=== PATIENT | male | born 1940 | race Caucasian/White ===

== ENCOUNTER 2019-07-25 19:23 | Emergency (ER) | payer MEDICARE, BC, SELFPAY ==
[2019-07-25 19:24] VITALS: BP 145/66; PULSE 73; RESP 14; O2SAT 95
--- NOTE | 2019-07-25 19:26 | ED.GENADULT ---
HPI - General Adult General Chief complaint: Neuro Symptoms/Deficit Stated complaint: CODE STROKE Time Seen by Provider: 07/25/19 19:24 Source: family and EMS Mode of arrival: EMS Limitations: altered mental status History of Present Illness HPI narrative: Patient is a 79-year-old male. End-stage renal disease on dialysis. Received a full treatment of dialysis today 07/25/19. Was at his normal state health when he was at the local [place] with his . His states that she went to the [employer] machine when she returned the patient was staring off to the side would not answer any of her questions. She stated that there was no trauma. She was concerned that he had a stroke. EMS was called. When EMS arrived they stated that the patient was maintaining his airway however was minimally responsive. Responding only to very painful stimuli. There was some concern about him moving his right side. There is also an obvious right-sided facial droop. Blood group close level prior to arrival is greater than 100. IV was started. No other interventions. Related Data Home Medications Medication Instructions Recorded Confirmed acetaminophen [Tylenol Extra 1,000 mg PO Q8HR PRN 07/25/19 07/25/19 Strength] aspirin [Aspirin Low Dose] 81 mg PO DAILY 07/25/19 07/25/19 carvedilol 12.5 mg PO BID 07/25/19 07/25/19 cholecalciferol (vitamin D3) 5,000 unit PO DAILY 07/25/19 07/25/19 [Vitamin D3] epoetin beta, methoxy peg [Mircera] 30 mcg SUBCUT Q4W 07/25/19 07/25/19 furosemide 80 mg PO DAILY 07/25/19 07/25/19 gabapentin 300 mg PO BEDTIME 07/25/19 07/25/19 hydralazine 25 mg PO BID 07/25/19 07/25/19 isosorbide mononitrate 30 mg PO DAILY 07/25/19 07/25/19 lanthanum [Fosrenol] 750 mg PO TID 07/25/19 07/25/19 nitroglycerin 0.4 mg SUBLINGUAL Q5-15M PRN 07/25/19 07/25/19 rosuvastatin [Crestor] 40 mg PO DAILY 07/25/19 07/25/19 sacubitril-valsartan [Entresto] 1 tab PO BID 07/25/19 07/25/19 Allergies Allergy/AdvReac Type Severity Reaction Status Date / Time chlorhexidine Allergy Mild ITCHING Verified 07/25/19 20:10 Review of Systems Review of Systems ROS Unobtainable: Unobtainable due to mental status/LOC Patient History Medical History Abdominal aortic aneurysm (Acute) Aortic valve stenosis (Acute) Chronic systolic CHF (congestive heart failure) (Acute) Coronary artery disease involving coronary bypass graft of [place] heart with angina pectoris (Acute) End-stage renal disease on hemodialysis (Acute) Essential hypertension (Acute) Ischemic cardiomyopathy (Acute) CHETNA on CPAP (Acute) Surgical History Hx of CABG (Acute) S/P AAA (abdominal aortic aneurysm) repair (Acute) Social History marital status: lives independently: Yes Exam Initial Vital Signs Initial Vital Signs: Vital Signs Pulse Rate 73 07/25/19 19:24 Respiratory Rate 14 07/25/19 19:24 Blood Pressure 145/66 H 07/25/19 19:24 Pulse Oximetry 95 07/25/19 19:24 Const General: comfortable and well developed Orientation: awake and obtunded Limitations: altered mental status [facility] Head: normal to inspection and normocephalic Eyes Pupils: PERRL Chest Chest: No crepitus Resp Effort & Inspection: normal respiratory effort Auscultation: clear to auscultation bilaterally Cardio Rate: regular rate Rhythm: regular rhythm Pulses: radial pulses present GI Inspection: non-distended Palpation: soft Skin Lesions: no lesions Rashes: no rashes Neuro General: awake and does not move all extremities Cognition: abnormal cognition Speech: other (Nonverbal) Gait: other (Did not ambulate) Other: Patient is nonverbal. Has an obvious right-sided facial droop. Spontaneously moved left upper extremity. Spontaneously moves bilateral lower extremities. Withdraws to stimuli bilateral lower extremities. Does not move right upper extremity. Does not follow commands. Is nonverbal. Momentarily held his left arm in the air. Did make purposeful movements with his left arm to fix his glasses. No purposeful movements to his lower extremities. Seems to have a left upward gaze Extrem General: capillary refill normal and No edema Other: Spontaneously moves left arm and bilateral lower extremities. Does not spontaneously move right upper extremity Psych Appearance: well kempt Scores GCS Martínez coma scale eye opening: Spontaneous Martínez coma scale verbal response: None Martínez coma scale motor response: Localising Martínez coma scale total score: 10 NIH Stroke Scale Level of Conciousness: Not alert, but arousable by minor stim to obey, answer or respond Ask month/age: Answers neither question correctly, aphasic, stuporous, coma Open/close eyes, close hand: Performs neither task correctly Best gaze horizontal: Forced deviation or total gaze paresis not overcome Visual reid: No visual loss Facial palsy: Partial paralysis, total or near total paralysis of lower face Left arm drift: Drifts down, not to bed Right arm drift: No movement Left leg drift: No effort against gravity Right leg drift: No effort against gravity Limb ataxia: Absent Sensory on face/arms/legs: Normal, no sensory loss Best language: Mute, global aphasia Dysarthria: Physical barrier to speech, intubated Extinction or inattention: Profound linda-inattention. Does not recognize own hand, one side Total NIH Stroke scale score: 28 Course Orders Ordered: ED Orders 07/25/19 19:25 CT head/brain wo con Stat EKG-12 Lead Stat 07/25/19 19:29 CT angio head and neck Stat 07/25/19 19:37 Acetaminophen Stat Complete Blood Count AUTO DIFF Stat Comprehensive Metabolic Panel Stat Ethanol (ETOH) Stat Lipase Stat Partial Thromboplastin Time Stat Prothrombin Time INR Stat Thyroid Stimulating Hormone Stat Troponin I Stat 07/25/19 19:53 Ammonia (NH3) Stat 07/25/19 20:45 Urine Drug Screen, Rapid Stat Vital Signs Vital signs: Vital Signs - 8 hr 07/25/19 19:24 07/25/19 20:05 07/25/19 20:06 Pulse Rate 73 72 72 Respiratory Rate 14 17 17 Blood Pressure 145/66 H 145/66 H Blood Pressure [Left Arm] 138/63 Pulse Oximetry 95 98 98 07/25/19 20:30 Pulse Rate 74 Respiratory Rate 22 Blood Pressure Blood Pressure [Left Arm] 138/74 Pulse Oximetry 98 Medical Decision Making Lab Data Lab results reviewed: Yes I reviewed the patient's lab results. Result diagrams: 07/25/19 19:37 07/25/19 19:37 Labs: Lab Results 07/25/19 07/25/19 07/25/19 Range/Units 19:37 19:37 19:37 WBC 7.0 (4.5-11.0) X10^3/uL RBC 3.94 L (4.5-5.9) X10^6/uL Hgb 12.4 L (13.5-17.5) g/dL Hct 37.4 L (41-53) % MCV 95.0 (80-100) fL MCH 31.5 (26-34) PG MCHC 33.2 (30-36) % RDW 16.7 H (11.6-14.8) % Plt Count 206 (150-400) X10^3/uL Neut % (Auto) 79.0 H (50-75) % Lymph % (Auto) 13.6 L (25-40) % [place] % (Auto) 5.4 (3-14) % Eos % (Auto) 0.9 L (2-4) % Baso % (Auto) 1.1 (0-2) % Neut # (Auto) 5600 (2553-5200) /uL Lymph # (Auto) 1000 L (8121-7166) /uL [place] # (Auto) 400 (0-900) /uL Eos # (Auto) 100 (0-450) /uL Baso # (Auto) 100 (0-100) /uL PT (10.1-12.7) SECONDS INR (0.9-1.3) APTT 31 (26.4-36.2) SECONDS Sodium 138 (137-145) mmol/L Potassium 5.1 (3.4-5.1) mmol/L Chloride 95 L (98-107) mmol/L Carbon Dioxide 30 (22-32) mmol/L BUN 22 H (9-20) mg/dL Creatinine 3.60 H (0.66-1.25) mg/dL Estimated GFR 16.5 L (>60) mL/min BUN/Creatinine Ratio 6.1 (6-22) Glucose 117 H (80-110) mg/dL Calcium 9.2 (8.4-10.2) mg/dL Total Bilirubin 1.3 (0.2-1.3) mg/dL AST 24 (17-59) IU/L ALT 15 (<50) IU/L Alkaline Phosphatase 95 (38-126) U/L Ammonia (9-30) umol/L Troponin I (0.01-0.034) ng/mL Total Protein 6.7 (6.3-8.2) g/dL Albumin 4.0 (3.5-5.0) g/dL Globulin 2.7 (1.7-4.1) g/dL Albumin/Globulin Ratio 1.5 (1.0-2.8) Lipase 77 (23-300) U/L TSH (0.47-4.68) uIU/mL Acetaminophen < 10 L (10-30) ug/mL Ethyl Alcohol < 10 ( - 10) mg/dL 07/25/19 07/25/19 07/25/19 Range/Units 19:37 19:37 19:37 WBC (4.5-11.0) X10^3/uL RBC (4.5-5.9) X10^6/uL Hgb (13.5-17.5) g/dL Hct (41-53) % MCV (80-100) fL MCH (26-34) PG MCHC (30-36) % RDW (11.6-14.8) % Plt Count (150-400) X10^3/uL Neut % (Auto) (50-75) % Lymph % (Auto) (25-40) % [place] % (Auto) (3-14) % Eos % (Auto) (2-4) % Baso % (Auto) (0-2) % Neut # (Auto) (0125-4822) /uL Lymph # (Auto) (4854-7264) /uL [place] # (Auto) (0-900) /uL Eos # (Auto) (0-450) /uL Baso # (Auto) (0-100) /uL PT 13.2 H (10.1-12.7) SECONDS INR 1.1 (0.9-1.3) APTT (26.4-36.2) SECONDS Sodium (137-145) mmol/L Potassium (3.4-5.1) mmol/L Chloride (98-107) mmol/L Carbon Dioxide (22-32) mmol/L BUN (9-20) mg/dL Creatinine (0.66-1.25) mg/dL Estimated GFR (>60) mL/min BUN/Creatinine Ratio (6-22) Glucose (80-110) mg/dL Calcium (8.4-10.2) mg/dL Total Bilirubin (0.2-1.3) mg/dL AST (17-59) IU/L ALT (<50) IU/L Alkaline Phosphatase (38-126) U/L Ammonia (9-30) umol/L Troponin I 0.103 H (0.01-0.034) ng/mL Total Protein (6.3-8.2) g/dL Albumin (3.5-5.0) g/dL Globulin (1.7-4.1) g/dL Albumin/Globulin Ratio (1.0-2.8) Lipase (23-300) U/L TSH 2.29 (0.47-4.68) uIU/mL Acetaminophen (10-30) ug/mL Ethyl Alcohol ( - 10) mg/dL 07/25/19 Range/Units 19:53 WBC (4.5-11.0) X10^3/uL RBC (4.5-5.9) X10^6/uL Hgb (13.5-17.5) g/dL Hct (41-53) % MCV (80-100) fL MCH (26-34) PG MCHC (30-36) % RDW (11.6-14.8) % Plt Count (150-400) X10^3/uL Neut % (Auto) (50-75) % Lymph % (Auto) (25-40) % [place] % (Auto) (3-14) % Eos % (Auto) (2-4) % Baso % (Auto) (0-2) % Neut # (Auto) (4892-3026) /uL Lymph # (Auto) (1559-5161) /uL [place] # (Auto) (0-900) /uL Eos # (Auto) (0-450) /uL Baso # (Auto) (0-100) /uL PT (10.1-12.7) SECONDS INR (0.9-1.3) APTT (26.4-36.2) SECONDS Sodium (137-145) mmol/L Potassium (3.4-5.1) mmol/L Chloride (98-107) mmol/L Carbon Dioxide (22-32) mmol/L BUN (9-20) mg/dL Creatinine (0.66-1.25) mg/dL Estimated GFR (>60) mL/min BUN/Creatinine Ratio (6-22) Glucose (80-110) mg/dL Calcium (8.4-10.2) mg/dL Total Bilirubin (0.2-1.3) mg/dL AST (17-59) IU/L ALT (<50) IU/L Alkaline Phosphatase (38-126) U/L Ammonia < 9.0 L (9-30) umol/L Troponin I (0.01-0.034) ng/mL Total Protein (6.3-8.2) g/dL Albumin (3.5-5.0) g/dL Globulin (1.7-4.1) g/dL Albumin/Globulin Ratio (1.0-2.8) Lipase (23-300) U/L TSH (0.47-4.68) uIU/mL Acetaminophen (10-30) ug/mL Ethyl Alcohol ( - 10) mg/dL Imaging Data CT scan - head: Radiologist's impression: [place] [address] CT Scan Report Signed Patient: Poncho KumarMR#: [id number] : 2Acct:[id number] Age/Sex: 79 / MDate of Service: 07/25/19 Loc: ED Accession Number: [id number] Procedure: CT head/brain wo con Ordering Provider: Peter Gray D.O. PROCEDURE: CT HEAD/BRAIN WO CON INDICATIONS: code stroke TECHNIQUE: Noncontrast 4.5 mm thick angled axial sections acquired from the foramen magnum to the vertex, with coronal and sagittal reformats. For radiation dose reduction, the following was used: automated exposure control, adjustment of mA and/or kV according to patient size. COMPARISON: None. FINDINGS: Image quality: Excellent. CSF spaces: Basal cisterns are patent. No extra-axial fluid collections. The ventricles are symmetric in size and shape. Brain: No intracranial bleeds or masses. There is cerebral volume loss for age, with resultant ventricular and sulcal prominence. There are periventricular and deep white matter chronic small vessel ischemic changes. There is intracranial internal carotid artery atherosclerosis. Skull and face: Calvarium and visualized facial bones appear intact, without suspicious lesions. Sinuses: Visualized sinuses and mastoids are clear. IMPRESSION: No acute intracranial process. Dictated by: Cristhian Cool M.D. on 07/25/2019 at 19:44 Approved by: Cristhian Cool M.D. on 07/25/2019 at 19:46 CTA: Radiologist's impression: [address] [address] [address] Scan Report Signed Patient: Poncho KumarMR#: [id number] : 2Acct:[id number] Age/Sex: 79 / MDate of Service: 07/25/19 Loc: ED Accession Number: [id number] Procedure: CT angio head and neck Ordering Provider: Peter Gray D.O. PROCEDURE: CT ANGIO HEAD AND NECK INDICATIONS: code stroke TECHNIQUE: Pre-contrast 4.5 mm thick sections acquired from the foramen magnum to the vertex. After the administration of intravenous contrast, 1 mm thick sections acquired from the aortic arch through the [place] of [place]. Post-contrast 4.5 mm thick sections then re-acquired from the foramen magnum to the vertex. 3-dimensional yrmfsti-vorqmdqix-mwglaidswm (MIP) and/or volume rendering reformats were acquired of the central intracranial vasculature and neck separately. COMPARISON: None. FINDINGS: Image quality: Excellent. BRAIN: CSF spaces: Ventricles are normal in size and shape. Basal cisterns are patent. No extra-axial fluid collections. Brain: No midline shift. No intracranial bleeds or masses. Larson-white matter interface is partially lost at the left frontal lobe image 24/. Skull and face: Calvarium and facial bones appear intact, without suspicious lesions. Orbits appear normal. Sinuses: Sinuses and mastoids are clear. HEAD CT ANGIOGRAPHY: Anterior circulation: Diffuse bilateral carotid calcifications. Intracranial internal carotid arteries (ICA): Patent. Anterior cerebral arteries (HENRIK): Patent. Middle cerebral arteries (MCA): Occlusion versus high-grade stenosis involving the left M1 segment just after the bifurcation. There is distal reconstitution of the distal right M1 segment although decreased flow in the sylvian vessels The right MCA appears grossly patent No aneurysms are seen. Posterior circulation: Visualized portions of the vertebral arteries: normal. Basilar artery: normal. Posterior cerebral arteries (ARTIFICIAL CANDY MAKER): normal. No aneurysms are seen. NECK CT ANGIOGRAPHY: Carotid system: The great vessels demonstrate a conventional anatomy as they arise from the aortic arch. Origins of the common carotid arteries (CCA) appear patent. Common carotid arteries (CCA): Patent. There is bilateral carotid calcification Internal carotid arteries (ICA): Greater than 50% focal stenosis at the proximal left internal carotid artery at the level of the bifurcation 50% focal stenosis of the proximal right ICA at the level of the bifurcation. Posterior circulation: The origins of the vertebral arteries both appear widely patent. Extracranial portions of both vertebral arteries: normal. Basilar artery: normal. Soft tissues: Visualized neck soft tissues demonstrate no suspicious abnormalities. Bones: No suspicious bony lesions. Visualized cervical spine appears normally aligned. IMPRESSION: Occlusion versus high-grade stenosis of the proximal left M1 segment with distal reconstitution and diminished flow in the distal vessels. Greater than 50% focal stenosis of the left ICA. 50% focal stenosis of the right ICA. These findings could be further assessed with dedicated carotid ultrasound. Diffuse atherosclerotic calcifications. Any quantitative measurements of stenosis were performed using NASCET criteria. Dictated by: Cristhian Cool M.D. on 07/25/2019 at 20:17 Approved by: Cristhian Cool M.D. on 07/25/2019 at 20:29 ECG Data Attestation: I personally reviewed and interpreted this ECG as follows: Prior ECG tracings: not available for review Interpretation: Sinus rhythm Ventricular rate is [address] depression V5 V6 No ST elevation MDM Narrative Medical decision making narrative: Near impossible to obtain a NIH scale due to patient's physical deficits. Has obvious right-sided facial droop and has what I think is a a right-sided neglect. Deep hemiparesis of the right upper extremity. The only purposeful movement of his other extremities was his left arm. Does withdrawal to pain lower extremities. Does not speak. At baseline patient is high functioning is ambulatory. Patient's is at bedside. Given the patient's other co morbidities to include AAA repair, aortic stenosis, coronary artery bypass graft and dialysis there is a high chance the patient is on anticoagulation. The patient's is unsure if he is currently taking any anticoagulation. She thinks that up until approximately 1 month ago he was on either Eliquis or Xarelto. She is unsure exactly which 1. She feels like they took him off of these medications at that time but she is not 100% sure. Multiple attempts to contact the patient's pharmacy and other hospital systems did show that a office note from June 2019 shows only that the patient is on aspirin however we are not 100% convinced of this. Given his other comorbidities in the concern of potential use of anticoagulation feel that tPA is high risk in this patient. He does meet other criteria to include time of arrival. He has never had a GI bleed. Never had a head bleed according to his . No recent surgeries. Non-con head CT shows no acute changes. I did discuss the case with Dr. Berger the stroke neurologist at [facility]. She reviewed the patient's CTA and stated that he did have a left-sided MCA clot. Patient is within the window for code IR. After discussion with Dr berger we feel that we should his transfer the patient for code IR and hold on tPA here in this emergency department. Patient will be air lifted. He is stable. Has no respiratory distress. Discussed the case with the patient's . She expressed understanding and agreement with plan. Critical Care Time Critical Care Time Critical Care Time: Yes Total Critical Care Time: 45 Attestation: The high probability of a clinically significant, sudden or life threatening deterioration of the neurologic system(s) required my full and direct attention, intervention and personal management. The aggregate critical care time was 45 minutes. This time is in addition to time spent performing reported procedures but includes the following: [] Data Review and interpretation [] Patient assessment and monitoring of vital signs [] Documentation [] Medication orders and management Discharge Plan Departure Patient Disposition: [facility] Clinical Impression: Acute embolic stroke Prescriptions: No Action carvedilol 12.5 mg Tablet 12.5 mg PO BID RF: 0 isosorbide mononitrate 30 mg Tablet Extended Release 24 Hr 30 mg PO DAILY RF: 0 hydralazine 25 mg Tablet 25 mg PO BID RF: 0 aspirin [Aspirin Low Dose] 81 mg Tablet,Delayed Release (Dr/Ec) 81 mg PO DAILY RF: 0 acetaminophen [Tylenol Extra Strength] 500 mg Tablet 1,000 mg PO Q8HR PRN (Reason: Pain (Scale Score 1-3)) RF: 0 furosemide 80 mg Tablet 80 mg PO DAILY RF: 0 nitroglycerin 0.4 mg Tablet, Sublingual 0.4 mg SUBLINGUAL Q5-15M PRN (Reason: Chest Pain) RF: 0 gabapentin 300 mg Capsule 300 mg PO BEDTIME RF: 0 rosuvastatin [Crestor] 40 mg Tablet 40 mg PO DAILY RF: 0 cholecalciferol (vitamin D3) [Vitamin D3] 5,000 unit Tablet 5,000 unit PO DAILY RF: 0 Mircera 30 mcg/0.3 mL Syringe 30 mcg SUBCUT Q4W RF: 0 Fosrenol 750 mg Powder In Packet 750 mg PO TID RF: 0 Entresto 24-26 mg Tablet 1 tab PO BID RF: 0 Referrals: Helena Pickard [Primary Care Provider] -
--- NOTE | 2019-07-25 19:29 | DI.CT.S_ITS ---
PROCEDURE: CT ANGIO HEAD AND NECK INDICATIONS: code stroke TECHNIQUE: Pre-contrast 4.5 mm thick sections acquired from the foramen magnum to the vertex. After the administration of intravenous contrast, 1 mm thick sections acquired from the aortic arch through the [place] of [place]. Post-contrast 4.5 mm thick sections then re-acquired from the foramen magnum to the vertex. 3-dimensional ylxbdjv-habujjlrm-otlgpywpco (MIP) and/or volume rendering reformats were acquired of the central intracranial vasculature and neck separately. COMPARISON: None. FINDINGS: Image quality: Excellent. BRAIN: CSF spaces: Ventricles are normal in size and shape. Basal cisterns are patent. No extra-axial fluid collections. Brain: No midline shift. No intracranial bleeds or masses. Larson-white matter interface is partially lost at the left frontal lobe image 24/13. Skull and face: Calvarium and facial bones appear intact, without suspicious lesions. Orbits appear normal. Sinuses: Sinuses and mastoids are clear. HEAD CT ANGIOGRAPHY: Anterior circulation: Diffuse bilateral carotid calcifications. Intracranial internal carotid arteries (ICA): Patent. Anterior cerebral arteries (HENRIK): Patent. Middle cerebral arteries (MCA): Occlusion versus high-grade stenosis involving the left M1 segment just after the bifurcation. There is distal reconstitution of the distal right M1 segment although decreased flow in the sylvian vessels The right MCA appears grossly patent No aneurysms are seen. Posterior circulation: Visualized portions of the vertebral arteries: normal. Basilar artery: normal. Posterior cerebral arteries (METAL TILE SETTER): normal. No aneurysms are seen. NECK CT ANGIOGRAPHY: Carotid system: The great vessels demonstrate a conventional anatomy as they arise from the aortic arch. Origins of the common carotid arteries (CCA) appear patent. Common carotid arteries (CCA): Patent. There is bilateral carotid calcification Internal carotid arteries (ICA): Greater than 50% focal stenosis at the proximal left internal carotid artery at the level of the bifurcation 50% focal stenosis of the proximal right ICA at the level of the bifurcation. Posterior circulation: The origins of the vertebral arteries both appear widely patent. Extracranial portions of both vertebral arteries: normal. Basilar artery: normal. Soft tissues: Visualized neck soft tissues demonstrate no suspicious abnormalities. Bones: No suspicious bony lesions. Visualized cervical spine appears normally aligned. IMPRESSION: Occlusion versus high-grade stenosis of the proximal left M1 segment with distal reconstitution and diminished flow in the distal vessels. Greater than 50% focal stenosis of the left ICA. 50% focal stenosis of the right ICA. These findings could be further assessed with dedicated carotid ultrasound. Diffuse atherosclerotic calcifications. Any quantitative measurements of stenosis were performed using NASCET criteria. Dictated by: Cristhian Cool M.D. on 07/25/2019 at 20:17 Approved by: Cristhian Cool M.D. on 07/25/2019 at 20:29
[2019-07-25 19:41] LABS: Add Manual Diff / Slide Review NO; Basophils Absolute Auto 100 /uL (0-100); Basophils Percent Auto 1.1 % (0-2); Eosinophils Absolute Auto 100 /uL (0-450); Eosinophils Percent Auto 0.9 % (2-4); Hematocrit 37.4 % (41-53); Hemoglobin 12.4 g/dL (13.5-17.5); Lymphocytes Absolute Auto 1000 /uL (1100-4500); Lymphocytes Percent Auto 13.6 % (25-40); Mean Corpuscular HGB Conc 33.2 % (30-36); Mean Corpuscular Hemoglobin 31.5 PG (26-34); Monocytes Absolute Auto 400 /uL (0-900); Monocytes Percent Auto 5.4 % (3-14); Neutrophils Absolute Auto 5600 /uL (1500-7000); Platelet Count 206 X10^3/uL (150-400); Red Blood Cell Count 3.94 X10^6/uL (4.5-5.9); Red Cell Distribution Width 16.7 % (11.6-14.8)
[2019-07-25 19:48] LABS: PTT Partial Thromboplastin Tim 31 SECONDS (26.4-36.2)
[2019-07-25 19:52] LABS: INR 1.1 (0.9-1.3); Prothrombin Time 13.2 SECONDS (10.1-12.7)
[2019-07-25 20:00] VITALS: BP 145/66; PULSE 73; RESP 15; O2SAT 98
--- NOTE | 2019-07-25 20:01 | PC.NURSE ---
R side neglect noted in CT with puplis unequal. Left pupil >R, both briskly reactive. Right leg with some movement noted in CT. Purposeful movement of left arm observed as pt adjusted his glasses. No verbal response. Not obeying commands. at bedside. Right upper AV fistula noted
[2019-07-25 20:02] LABS: Acetaminophen < 10 ug/mL (10-30); Alanine Aminotransferase 15 IU/L (<50); Albumin Globulin Ratio 1.5 (1.0-2.8); Alkaline Phosphatase 95 U/L (38-126); Aspartate Aminotransferase 24 IU/L (17-59); BUN Creatinine Ratio 6.1 (6-22); Bilirubin Total 1.3 mg/dL (0.2-1.3); Blood Urea Nitrogen 22 mg/dL (9-20); Calcium 9.2 mg/dL (8.4-10.2); Carbon Dioxide 30 mmol/L (22-32); Chloride 95 mmol/L (98-107); Estimated Glomerular Filt Rate 16.5 mL/min (>60); Ethanol (ETOH) < 10 mg/dL; Globulin 2.7 g/dL (1.7-4.1); Glucose 117 mg/dL (80-110); HEMOLYSIS 17 (0-50); Lipase 77 U/L (23-300); Potassium 5.1 mmol/L (3.4-5.1); Sodium 138 mmol/L (137-145); Total Protein 6.7 g/dL (6.3-8.2)
--- NOTE | 2019-07-25 20:02 | PC.NURSE ---
Called [facility] for medication list/ last visit notes. Pt has not been seen there recently but had visit @ [facility] in June. Called [facility] and spoke w/ ED RN. Pt seen there in June of 2019. Their med req was reviewed RN who states the only blood thinner is ASA 81 mg daily. They are faxing last visit notes and med list.
[2019-07-25 20:03] LABS: Troponin I 0.103 ng/mL (0.01-0.034)
[2019-07-25 20:05] VITALS: BP 138/63; PULSE 72; RESP 17; O2SAT 98
[2019-07-25 20:06] VITALS: BP 145/66; PULSE 72; RESP 17; O2SAT 98
[2019-07-25 20:10] LABS: Ammonia (NH3) < 9.0 umol/L (9-30)
[2019-07-25 20:15] VITALS: BP 138/63; PULSE 73; RESP 16; O2SAT 98
[2019-07-25 20:21] LABS: Thyroid Stimulating Hormone 2.29 uIU/mL (0.47-4.68)
[2019-07-25 20:30] VITALS: BP 138/74; PULSE 74; PULSE 79; RESP 21; RESP 22; O2SAT 98
== END 2019-07-25 20:50 | disposition short-term general hospital (02) ==
PROVIDERS: Emergency Provider Emergency Medicine; PCP Internal Medicine
DX: I63.9 Cerebral infarction, unspecified (principal); N18.6 End stage renal disease; Z99.2 Dependence on renal dialysis
CPT/HCPCS: 36415; 51701; 70450; 70496; 70498; 80053; 80320; 80329; 82140; 82962; 83690; 84443; 84484; 85025; 85610; 85730; 93005; 93010; 99284; 99291; 99292; G0480; Q9967